=== PATIENT | female | born 1955 ===

== ENCOUNTER 2020-07-21 13:28 | Outpatient (CLI) | payer MEDICARE, MEDICAID | END 2020-07-21 13:29 | disposition home or self-care (01) | LOC: SLR 13:28 | PROVIDERS: ATTEND Otolaryngology | DX: G47.33 Obstructive sleep apnea (adult) (pediatric) (principal); I11.0 Hypertensive heart disease with heart failure; I50.40 Unspecified combined systolic (congestive) and diastolic (congestive) heart failure; J44.9 Chronic obstructive pulmonary disease, unspecified; E66.9 Obesity, unspecified; G47.30 Sleep apnea, unspecified | CPT/HCPCS: 95810 ==